=== PATIENT | male | born 1995 ===

== ENCOUNTER 2021-11-20 14:53 | Emergency (ER) | payer SELFPAY ==
[~2021-11-20] VITALS: Ht 177.8 cm; Wt 92.3 kg
[2021-11-20 15:08] VITALS: BP 123/75
--- NOTE | 2021-11-20 15:16 | NUR ---
PT AMBULATED TO ER BED 12 WITH STEADY GAIT
[2021-11-20] MEDS ORDERED: ACETAMINOPHEN EXTRA STRENGTH 500 MG TAB PO ONE (15:20)
[2021-11-20] MEDS ORDERED: METOCLOPRAMIDE 10 MG/2 ML INJ VIAL IVP ONE (15:20)
[2021-11-20] MEDS ORDERED: IBUPROFEN 400 MG TAB PO ONE (15:20)
--- NOTE | 2021-11-20 15:35 | NUR ---
26/M PRESENTS TO ED WITH C/O HEADACHE X3 DAYS WITH BLURRY VISION MAINLY IN THE RIGHT EYE. 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 PATIENT DENIES PAIN AT THIS TIME, DENIES NAUSEA, VOMITING.
[2021-11-20] MEDS ORDERED: NACL 0.9% 2,000 ML IV ONE (16:05)
[2021-11-20 17:31] VITALS: BP 133/62
--- NOTE | 2021-11-20 17:31 | NUR ---
Patient discharged with v/s stable. Written and verbal after care instructions ABOUT VISUAL DISTURBANCES given and explained. Patient verbalized understanding. Ambulatory with steady gait. All questions addressed prior to discharge. Advised to follow up with PMD.
== END 2021-11-20 17:31 | disposition home or self-care (01) ==
LOC: MED 14:53
DX: H53.9 Unspecified visual disturbance (principal)
CPT/HCPCS: 96360; 99283; J7030